=== PATIENT | male | born 1960 | race Caucasian/White ===

== ENCOUNTER 2017-07-18 12:13 | Emergency (ER) | payer OTHER ==
[2017-07-18 13:23] LABS: ADD MAN DIFF? NO
[2017-07-18 13:29] LABS: WHITE BLOOD COUNT 7.1 10^3/ul (4.8-10.8)
[2017-07-18 13:29] LABS: BASOPHILS % 0.6 % (0.0-2.0); EOSINOPHILS # 0.2 10^3/ul (0.0-0.5); EOSINOPHILS % 3.3 % (0.0-7.0); HEMATOCRIT 40.3 % (42.0-52.0); HEMOGLOBIN 13.3 g/dl (14.0-18.0); LYMPHOCYTES # 1.3 10^3/ul (0.8-2.9); MEAN CORPUSCULAR VOLUME 87.8 fl (82.0-101.0); MEAN PLATELET VOLUME 11.2 fl (7.4-10.4); MONOCYTE # 0.5 10^3/ul (0.3-0.9); MONOCYTES % 7.6 % (0.0-11.0); NEUTROPHIL # 4.9 10^3/ul (1.6-7.5); NEUTROPHILS % 69.2 % (39.0-77.0); PLATELET COUNT 113 10^3/UL (140-415); RED BLOOD COUNT 4.59 10^6/ul (4.70-6.10); RED CELL DISTRIBUTION WIDTH 13.4 % (11.5-14.5)
[2017-07-18 13:30] LABS: ADD UMIC YES; UR ASCORBIC ACID NEGATIVE (NEGATIVE); UR BILIRUBIN (Dip) NEGATIVE (NEGATIVE); UR BLOOD (Dip) 2+ mg/dL (NEGATIVE); UR CLARITY CLEAR (CLEAR); UR COLOR YELLOW (YELLOW); UR GLUCOSE (Dip) 3+ mg/dL (NEGATIVE); UR KETONES (Dip) NEGATIVE (NEGATIVE); UR LEUKOCYTE ESTERASE (Dip) NEGATIVE Leu/ul (NEGATIVE); UR NITRITE (Dip) NEGATIVE (NEGATIVE); UR RBC 5 /HPF (0-5); UR SPECIFIC GRAVITY (Dip) 1.013 (1.003-1.030); UR TOTAL PROTEIN (Dip) NEGATIVE (NEGATIVE); UR UROBILINOGEN (Dip) 2+ mg/dL (NEGATIVE); UR WBC 1 /HPF (0-5)
[2017-07-18] MEDS: SOD CHLORIDE 0.9% 1,000 ML IV (13:31)
[2017-07-18 13:45] LABS: ALANINE AMINOTRANSFERASE 37 IU/L (13-69); ALBUMIN 4.3 g/dl (3.3-4.9); ALBUMIN/GLOBULIN RATIO 1.19; ALKALINE PHOSPHATASE 119 IU/L (42-121); ANION GAP 17 (8-16); ASPARTATE AMINO TRANSFERASE 31 IU/L (15-46); BILIRUBIN,INDIRECT 0.5 mg/dl (0-1.1); BILIRUBIN,TOTAL 0.5 mg/dl (0.2-1.3); BLOOD UREA NITROGEN 23 mg/dl (7-20); CALCIUM 8.8 mg/dl (8.4-10.2); CARBON DIOXIDE 30 mmol/L (21-31); CHLORIDE 99 mmol/L (97-110); CREATININE 1.29 mg/dl (0.61-1.24); GLUCOSE 263 mg/dl (70-220); POTASSIUM 4.6 mmol/L (3.5-5.1); SODIUM 141 mmol/L (135-144); TOTAL PROTEIN 7.9 g/dl (6.1-8.1)
[2017-07-18] MEDS: ONDANSETRON 4 MG INJ IV (13:48)
[2017-07-18] MEDS: HYDROmorphONE 1 MG/5 ML IV SYRINGE IV (13:48)
== END 2017-07-18 14:31 | disposition home or self-care (01) ==
LOC: E/R 12:13
DX: R10.9 Unspecified abdominal pain (principal); R31.29 Other microscopic hematuria; I10 Essential (primary) hypertension; E11.9 Type 2 diabetes mellitus without complications; F17.210 Nicotine dependence, cigarettes, uncomplicated; Z79.4 Long term (current) use of insulin; Z79.82 Long term (current) use of aspirin
CPT/HCPCS: 36415; 74176; 80053; 81001; 85025; 87086; 96374; 96375; 99285-25

== ENCOUNTER 2018-08-05 00:22 | Inpatient (IN) | payer OTHER ==
[2018-08-05] MEDS ORDERED: hydrOXYzine PAMOATE 25 MG CAP PO (05:30)
[2018-08-05] MEDS ORDERED: VANCOMYCIN IV PER PHARMACY XX (05:30)
[2018-08-05] MEDS ORDERED: GLUCAGON 1 MG INJ IM (06:00)
[2018-08-05] MEDS ORDERED: GLUCOSE GEL 15 GRAM TUBE BUCCAL (06:00)
[2018-08-05] MEDS ORDERED: DEXTROSE 50% 50 ML SYRINGE IV ×2 (06:00)
[2018-08-05] MEDS ORDERED: GLUCOSE GEL 15 GRAM TUBE PO ×2 (06:00)
[2018-08-05] MEDS: AZTREONAM 1 GM/NS (PMX) 50 ML IVPB ×3 (06:45→21:23)
[2018-08-05] MEDS: GABAPENTIN 300 MG CAP PO ×2 (08:30→21:13)
[2018-08-05] MEDS: LOSARTAN 25 MG TAB PO (08:30)
[2018-08-05] MEDS: FINASTERIDE 5 MG TAB PO (08:30)
[2018-08-05] MEDS: ACYCLOVIR 400 MG TAB PO ×2 (08:30→21:14)
[2018-08-05] MEDS: METOPROLOL (XL) 50 MG TAB PO (08:30)
[2018-08-05] MEDS: CLOPIDOGREL 75 MG TAB PO (08:31)
[2018-08-05] MEDS: INSULIN ASPART [NOVOLOG] 3 ML PEN SC ×4 (08:32→21:19)
[2018-08-05] MEDS: ASPIRIN (EC) 325 MG TAB PO (09:00)
[2018-08-05 09:06] LABS: ADD MAN DIFF? NO
[2018-08-05 09:12] LABS: WHITE BLOOD COUNT 7.9 10^3/ul (4.8-10.8)
[2018-08-05 09:12] LABS: BASOPHILS % 0.5 % (0.0-2.0); EOSINOPHILS # 0.3 10^3/ul (0.0-0.5); EOSINOPHILS % 3.5 % (0.0-7.0); HEMATOCRIT 36.9 % (42.0-52.0); HEMOGLOBIN 11.9 g/dl (14.0-18.0); MEAN CORPUSCULAR HEMOGLOBIN 30.4 pg (29.0-33.0); MEAN CORPUSCULAR HGB CONC 32.2 g/dl (32.0-37.0); MEAN CORPUSCULAR VOLUME 94.1 fl (82.0-101.0); MEAN PLATELET VOLUME 12.3 fl (7.4-10.4); MONOCYTE # 0.8 10^3/ul (0.3-0.9); MONOCYTES % 9.6 % (0.0-11.0); NEUTROPHIL # 5.8 10^3/ul (1.6-7.5); NEUTROPHILS % 74.1 % (39.0-77.0); PLATELET COUNT 100 10^3/UL (140-415); RED BLOOD COUNT 3.92 10^6/ul (4.70-6.10); RED CELL DISTRIBUTION WIDTH 13.9 % (11.5-14.5)
[2018-08-05 09:34] LABS: ALANINE AMINOTRANSFERASE 33 IU/L (13-69); ALBUMIN 3.4 g/dl (3.3-4.9); ALBUMIN/GLOBULIN RATIO 0.97; ALKALINE PHOSPHATASE 139 IU/L (42-121); ANION GAP 8 (5-13); ASPARTATE AMINO TRANSFERASE 26 IU/L (15-46); BILIRUBIN,INDIRECT 0.5 mg/dl (0-1.1); BILIRUBIN,TOTAL 0.5 mg/dl (0.2-1.3); BLOOD UREA NITROGEN 33 mg/dl (7-20); CARBON DIOXIDE 23 mmol/L (21-31); CHLORIDE 108 mmol/L (97-110); CREATININE 1.43 mg/dl (0.61-1.24); Estimated GFR 51 mL/min (>60); GLUCOSE 189 mg/dl (70-220); POTASSIUM 4.6 mmol/L (3.5-5.1); SODIUM 139 mmol/L (135-144); TOTAL PROTEIN 6.9 g/dl (6.1-8.1)
[2018-08-05] MEDS ORDERED: VANCOMYCIN HCL 1.5 GM in SOD CHLORIDE 0.9% 250 ML IVPB (10:00)
[2018-08-05] MEDS: VANCOMYCIN HCL 1.25 GM in SOD CHLORIDE 0.9% 250 ML IVPB ×2 (10:03→21:56)
[2018-08-05 11:29] LABS: ANION GAP 5 (5-13); BLOOD UREA NITROGEN 31 mg/dl (7-20); CALCIUM 8.1 mg/dl (8.4-10.2); CARBON DIOXIDE 27 mmol/L (21-31); CHLORIDE 107 mmol/L (97-110); CREATININE 1.43 mg/dl (0.61-1.24); Estimated GFR 51 mL/min (>60); GLUCOSE 186 mg/dl (70-220); POTASSIUM 5.1 mmol/L (3.5-5.1); SODIUM 139 mmol/L (135-144)
[2018-08-05 11:30] LABS: PARTIAL THROMBOPLASTIN TIME 35.1 Sec (23.0-35.0)
[2018-08-05] MEDS: SOD CHLORIDE 0.9% 1,000 ML IV (12:12)
[2018-08-05] MEDS: ENOXAPARIN 40 MG/0.4 ML SYG SC (17:37)
[2018-08-05] MEDS: AMITRIPTYLINE 50 MG TAB PO (21:00)
[2018-08-05] MEDS: MONTELUKAST 10 MG TAB PO (21:13)
[2018-08-06] MEDS: morphine 4 MG/ML VIAL IV ×2 (00:57→21:42)
[2018-08-06] MEDS: ACCU-CHEK XX (02:00)
[2018-08-06 05:33] LABS: ADD MAN DIFF? NO
[2018-08-06 05:39] LABS: WHITE BLOOD COUNT 7.7 10^3/ul (4.8-10.8)
[2018-08-06 05:39] LABS: BASOPHILS % 0.5 % (0.0-2.0); EOSINOPHILS # 0.3 10^3/ul (0.0-0.5); EOSINOPHILS % 3.3 % (0.0-7.0); HEMATOCRIT 36.2 % (42.0-52.0); HEMOGLOBIN 11.6 g/dl (14.0-18.0); LYMPHOCYTES % 12.8 % (15.0-51.0); MEAN CORPUSCULAR HEMOGLOBIN 30.4 pg (29.0-33.0); MEAN PLATELET VOLUME 11.6 fl (7.4-10.4); MONOCYTE # 0.8 10^3/ul (0.3-0.9); MONOCYTES % 10.8 % (0.0-11.0); NEUTROPHIL # 5.5 10^3/ul (1.6-7.5); NEUTROPHILS % 72.2 % (39.0-77.0); PLATELET COUNT 106 10^3/UL (140-415); RED BLOOD COUNT 3.81 10^6/ul (4.70-6.10); RED CELL DISTRIBUTION WIDTH 13.9 % (11.5-14.5)
[2018-08-06] MEDS: AZTREONAM 1 GM/NS (PMX) 50 ML IVPB ×3 (05:40→21:40)
[2018-08-06] MEDS: PANTOPRAZOLE (EC) 40 MG TAB PO (05:40)
[2018-08-06 05:48] LABS: HEMOGLOBIN A1C 8.6 % (0-5.9)
[2018-08-06 06:10] LABS: ANION GAP 7 (5-13); BLOOD UREA NITROGEN 23 mg/dl (7-20); CARBON DIOXIDE 23 mmol/L (21-31); CHLORIDE 110 mmol/L (97-110); CREATININE 1.19 mg/dl (0.61-1.24); Estimated GFR > 60 mL/min (>60); GLUCOSE 136 mg/dl (70-220); POTASSIUM 4.9 mmol/L (3.5-5.1); SODIUM 140 mmol/L (135-144)
[2018-08-06] MEDS: INSULIN ASPART [NOVOLOG] 3 ML PEN SC ×4 (08:00→21:50)
[2018-08-06] MEDS: ACYCLOVIR 400 MG TAB PO ×2 (08:06→21:40)
[2018-08-06] MEDS: FINASTERIDE 5 MG TAB PO (08:06)
[2018-08-06] MEDS: CLOPIDOGREL 75 MG TAB PO (08:06)
[2018-08-06] MEDS: METOPROLOL (XL) 50 MG TAB PO (08:07)
[2018-08-06] MEDS: ASPIRIN (EC) 325 MG TAB PO (08:07)
[2018-08-06] MEDS: GABAPENTIN 300 MG CAP PO ×2 (08:07→21:39)
[2018-08-06] MEDS: ENOXAPARIN 40 MG/0.4 ML SYG SC (08:09)
[2018-08-06] MEDS: LOSARTAN 25 MG TAB PO (08:13)
[2018-08-06 10:13] LABS: VANCOMYCIN,TROUGH 19.4 ug/ml (10.0-20.0)
[2018-08-06] MEDS: VANCOMYCIN HCL 1.25 GM in SOD CHLORIDE 0.9% 250 ML IVPB (10:43)
[2018-08-06] MEDS: SOD CHLORIDE 0.9% 1,000 ML IV (10:44)
[2018-08-06] MEDS: ACETAMINOPHEN 325 MG TAB PO (11:27)
[2018-08-06] MEDS: AMITRIPTYLINE 50 MG TAB PO (21:00)
[2018-08-06] MEDS: MONTELUKAST 10 MG TAB PO (21:39)
[2018-08-06] MEDS ORDERED: VANCOMYCIN 750 MG (PMX) 250 ML IVPB (22:00)
[2018-08-06] MEDS: VANCOMYCIN 750 MG (PMX) 250 ML IVPB (22:44)
[2018-08-07] MEDS: ACCU-CHEK XX (02:00)
[2018-08-07] MEDS: AZTREONAM 1 GM/NS (PMX) 50 ML IVPB ×3 (05:15→22:39)
[2018-08-07] MEDS: PANTOPRAZOLE (EC) 40 MG TAB PO (05:16)
[2018-08-07 05:45] LABS: ADD MAN DIFF? NO
[2018-08-07 05:50] LABS: WHITE BLOOD COUNT 7.2 10^3/ul (4.8-10.8)
[2018-08-07 05:50] LABS: BASOPHIL # 0.1 10^3/ul (0.0-0.1); BASOPHILS % 0.7 % (0.0-2.0); EOSINOPHILS # 0.2 10^3/ul (0.0-0.5); EOSINOPHILS % 2.6 % (0.0-7.0); HEMATOCRIT 36.1 % (42.0-52.0); HEMOGLOBIN 11.5 g/dl (14.0-18.0); LYMPHOCYTES # 0.9 10^3/ul (0.8-2.9); LYMPHOCYTES % 12.6 % (15.0-51.0); MEAN CORPUSCULAR HEMOGLOBIN 30.4 pg (29.0-33.0); MEAN CORPUSCULAR HGB CONC 31.9 g/dl (32.0-37.0); MEAN CORPUSCULAR VOLUME 95.5 fl (82.0-101.0); MEAN PLATELET VOLUME 11.2 fl (7.4-10.4); MONOCYTE # 0.8 10^3/ul (0.3-0.9); MONOCYTES % 11.1 % (0.0-11.0); NEUTROPHIL # 5.2 10^3/ul (1.6-7.5); NEUTROPHILS % 72.4 % (39.0-77.0); PLATELET COUNT 114 10^3/UL (140-415); RED BLOOD COUNT 3.78 10^6/ul (4.70-6.10); RED CELL DISTRIBUTION WIDTH 13.8 % (11.5-14.5)
[2018-08-07 05:57] LABS: IRON 35 ug/dl (35-150)
[2018-08-07 06:07] LABS: % IRON SATURATION 14 % SAT (22-52); TOTAL IRON BINDING CAPACITY 242 ug/dl (241-421)
[2018-08-07 06:15] LABS: ANION GAP 5 (5-13); BLOOD UREA NITROGEN 21 mg/dl (7-20); CALCIUM 8.3 mg/dl (8.4-10.2); CARBON DIOXIDE 26 mmol/L (21-31); CHLORIDE 108 mmol/L (97-110); Estimated GFR > 60 mL/min (>60); GLUCOSE 136 mg/dl (70-220); POTASSIUM 4.7 mmol/L (3.5-5.1); SODIUM 139 mmol/L (135-144)
[2018-08-07] MEDS: ACETAMINOPHEN 325 MG TAB PO ×2 (07:39→19:41)
[2018-08-07] MEDS: INSULIN ASPART [NOVOLOG] 3 ML PEN SC ×4 (08:00→20:44)
[2018-08-07] MEDS: FINASTERIDE 5 MG TAB PO (08:30)
[2018-08-07] MEDS: GABAPENTIN 300 MG CAP PO ×2 (08:31→20:40)
[2018-08-07] MEDS: ACYCLOVIR 400 MG TAB PO ×2 (08:31→20:41)
[2018-08-07] MEDS: ASPIRIN (EC) 325 MG TAB PO (08:31)
[2018-08-07] MEDS: METOPROLOL (XL) 50 MG TAB PO (08:31)
[2018-08-07] MEDS: CLOPIDOGREL 75 MG TAB PO (08:31)
[2018-08-07] MEDS: LOSARTAN 50 MG TAB PO (08:32)
[2018-08-07] MEDS: ENOXAPARIN 40 MG/0.4 ML SYG SC (08:33)
[2018-08-07] MEDS: SOD CHLORIDE 0.9% 1,000 ML IV ×2 (11:30→19:35)
[2018-08-07] MEDS: VANCOMYCIN 750 MG (PMX) 250 ML IVPB ×2 (11:30→23:32)
[2018-08-07] MEDS: MONTELUKAST 10 MG TAB PO (20:40)
[2018-08-07] MEDS: AMITRIPTYLINE 50 MG TAB PO (20:42)
[2018-08-07] MEDS: morphine 4 MG/ML VIAL IV (21:31)
[2018-08-08] MEDS: morphine 4 MG/ML VIAL IV ×4 (01:26→21:01)
[2018-08-08] MEDS: ACCU-CHEK XX (01:27)
[2018-08-08] MEDS: PANTOPRAZOLE (EC) 40 MG TAB PO (05:29)
[2018-08-08] MEDS: AZTREONAM 1 GM/NS (PMX) 50 ML IVPB ×3 (05:29→22:07)
[2018-08-08 06:34] LABS: CREATININE 1.19 mg/dl (0.61-1.24)
[2018-08-08 06:34] LABS: BLOOD UREA NITROGEN 18 mg/dl (7-20)
[2018-08-08] MEDS: INSULIN ASPART [NOVOLOG] 3 ML PEN SC ×4 (08:00→20:51)
[2018-08-08] MEDS: CLOPIDOGREL 75 MG TAB PO (08:13)
[2018-08-08] MEDS: FINASTERIDE 5 MG TAB PO (08:13)
[2018-08-08] MEDS: METOPROLOL (XL) 50 MG TAB PO (08:14)
[2018-08-08] MEDS: LOSARTAN 50 MG TAB PO (08:15)
[2018-08-08] MEDS: ACYCLOVIR 400 MG TAB PO ×2 (08:16→20:46)
[2018-08-08] MEDS: GABAPENTIN 300 MG CAP PO ×2 (08:16→20:46)
[2018-08-08] MEDS: ASPIRIN (EC) 325 MG TAB PO (08:16)
[2018-08-08] MEDS: ENOXAPARIN 40 MG/0.4 ML SYG SC (08:19)
[2018-08-08] MEDS: VANCOMYCIN 750 MG (PMX) 250 ML IVPB ×2 (11:56→23:23)
[2018-08-08 12:00] LABS: ERYTHROCYTE SEDIMENTATION RATE 78 mm/Hr (0-20)
[2018-08-08 12:09] LABS: VANCOMYCIN,TROUGH 12.6 ug/ml (10.0-20.0)
[2018-08-08 12:10] LABS: C-REACTIVE PROTEIN 7.6 mg/dl (0.0-0.9)
[2018-08-08 12:40] LABS: PROCALCITONIN 0.17 ng/mL (0.00-0.10)
[2018-08-08] MEDS ORDERED: LORAZEPAM 2 MG INJ IV (14:00)
[2018-08-08] MEDS: AMLODIPINE 5 MG TAB PO ×2 (14:58→22:08)
[2018-08-08 15:02] LABS: INR 1.06; PROTIME 13.9 Sec (11.9-14.9); PT RATIO 1.1
[2018-08-08] MEDS: hydrALAzine 20 MG INJ IV (17:40)
[2018-08-08] MEDS: MONTELUKAST 10 MG TAB PO (20:46)
[2018-08-08] MEDS: AMITRIPTYLINE 50 MG TAB PO (20:46)
[2018-08-08] MEDS: DEXTROSE 5%-0.45% NACL 1,000 ML IV (23:23)
[2018-08-09] MEDS: ACCU-CHEK XX (02:07)
[2018-08-09] MEDS: morphine 4 MG/ML VIAL IV ×3 (02:11→20:43)
[2018-08-09] MEDS: PANTOPRAZOLE (EC) 40 MG TAB PO (06:00)
[2018-08-09] MEDS: AZTREONAM 1 GM/NS (PMX) 50 ML IVPB ×3 (06:19→22:30)
[2018-08-09] MEDS: LOSARTAN 50 MG TAB PO (09:00)
[2018-08-09] MEDS: FINASTERIDE 5 MG TAB PO (09:00)
[2018-08-09] MEDS: INSULIN ASPART [NOVOLOG] 3 ML PEN SC (09:00)
[2018-08-09] MEDS: GABAPENTIN 300 MG CAP PO ×2 (09:00→20:44)
[2018-08-09] MEDS: ENOXAPARIN 40 MG/0.4 ML SYG SC (09:00)
[2018-08-09] MEDS: ACYCLOVIR 400 MG TAB PO ×2 (09:00→20:44)
[2018-08-09] MEDS: ASPIRIN (EC) 325 MG TAB PO (09:00)
[2018-08-09] MEDS: CLOPIDOGREL 75 MG TAB PO (09:00)
[2018-08-09] MEDS: AMLODIPINE 5 MG TAB PO ×2 (09:00→20:44)
[2018-08-09] MEDS: hydrALAzine 20 MG INJ IV ×2 (09:23→20:45)
[2018-08-09] MEDS: METOPROLOL (XL) 50 MG TAB PO (09:29)
[2018-08-09] MEDS ORDERED: POLYMYXIN/BACITRACIN 1L IRRIG (10:22)
[2018-08-09] MEDS ORDERED: LABETALOL HCL 20MG INJ (10:44)
[2018-08-09] MEDS ORDERED: FENTAnyl 50 MCG/ML VIAL (10:45)
[2018-08-09] MEDS ORDERED: ONDANSETRON 4 MG INJ (10:45)
[2018-08-09] MEDS ORDERED: MIDAZOLAM 1 MG/ML 2 ML INJ (10:50)
[2018-08-09] MEDS: BUPIVACAINE 0.5% (SDV) 30 ML INJ (11:07)
[2018-08-09] MEDS: LIDOCAINE 1% (MPF) 30 ML INJ (11:11)
[2018-08-09] MEDS: Insulin NOVOLOG SS MODERATE Algorithm (SS with meals and bedtime) SC ×3 (12:48→20:43)
[2018-08-09] MEDS: VANCOMYCIN 750 MG (PMX) 250 ML IVPB ×2 (13:11→23:03)
[2018-08-09] MEDS ORDERED: INSULIN ASPART [NOVOLOG] 3 ML PEN SC (17:30)
[2018-08-09] MEDS: ACETAMINOPHEN 325 MG TAB PO (19:13)
[2018-08-09] MEDS: AMITRIPTYLINE 50 MG TAB PO (20:43)
[2018-08-09] MEDS: MONTELUKAST 10 MG TAB PO (20:44)
[2018-08-10] MEDS: morphine 4 MG/ML VIAL IV ×4 (01:32→19:35)
[2018-08-10] MEDS: ACCU-CHEK XX (01:33)
[2018-08-10] MEDS: AZTREONAM 1 GM/NS (PMX) 50 ML IVPB ×3 (05:38→22:17)
[2018-08-10] MEDS: PANTOPRAZOLE (EC) 40 MG TAB PO (05:38)
[2018-08-10] MEDS: Insulin NOVOLOG SS MODERATE Algorithm (SS with meals and bedtime) SC ×4 (08:00→21:04)
[2018-08-10] MEDS: GABAPENTIN 300 MG CAP PO ×2 (08:23→21:01)
[2018-08-10] MEDS: CLOPIDOGREL 75 MG TAB PO (08:23)
[2018-08-10] MEDS: FINASTERIDE 5 MG TAB PO (08:24)
[2018-08-10] MEDS: ACYCLOVIR 400 MG TAB PO ×2 (08:25→21:01)
[2018-08-10] MEDS: AMLODIPINE 5 MG TAB PO ×2 (08:25→21:02)
[2018-08-10] MEDS: LOSARTAN 50 MG TAB PO (08:26)
[2018-08-10] MEDS: METOPROLOL (XL) 50 MG TAB PO (08:26)
[2018-08-10] MEDS: ENOXAPARIN 40 MG/0.4 ML SYG SC (08:31)
[2018-08-10] MEDS: ASPIRIN (EC) 325 MG TAB PO (08:36)
[2018-08-10] MEDS: VANCOMYCIN 750 MG (PMX) 250 ML IVPB ×2 (10:39→22:56)
[2018-08-10 10:51] LABS: C-REACTIVE PROTEIN 7.3 mg/dl (0.0-0.9)
[2018-08-10 11:28] LABS: ERYTHROCYTE SEDIMENTATION RATE 80 mm/Hr (0-20)
[2018-08-10 12:13] LABS: PROCALCITONIN 0.15 ng/mL (0.00-0.10)
[2018-08-10] MEDS: ARTIFICIAL TEARS 15 ML OPH BOTH EYES ×3 (15:05→21:01)
[2018-08-10] MEDS: AMITRIPTYLINE 50 MG TAB PO (21:00)
[2018-08-10] MEDS: MONTELUKAST 10 MG TAB PO (21:01)
[2018-08-11] MEDS: ACCU-CHEK XX (01:41)
[2018-08-11] MEDS: hydrALAzine 20 MG INJ IV (01:42)
[2018-08-11] MEDS: ACETAMINOPHEN 325 MG TAB PO ×2 (04:12→11:24)
[2018-08-11] MEDS: ONDANSETRON 4 MG INJ IV (04:17)
[2018-08-11 05:05] LABS: ADD MAN DIFF? NO
[2018-08-11 05:10] LABS: BASOPHIL # 0.1 10^3/ul (0.0-0.1); BASOPHILS % 0.8 % (0.0-2.0); EOSINOPHILS # 0.2 10^3/ul (0.0-0.5); EOSINOPHILS % 2.1 % (0.0-7.0); HEMATOCRIT 36.7 % (42.0-52.0); HEMOGLOBIN 11.8 g/dl (14.0-18.0); LYMPHOCYTES # 0.9 10^3/ul (0.8-2.9); LYMPHOCYTES % 12.3 % (15.0-51.0); MEAN CORPUSCULAR HEMOGLOBIN 30.5 pg (29.0-33.0); MEAN CORPUSCULAR HGB CONC 32.2 g/dl (32.0-37.0); MEAN CORPUSCULAR VOLUME 94.8 fl (82.0-101.0); MEAN PLATELET VOLUME 11.1 fl (7.4-10.4); MONOCYTE # 0.7 10^3/ul (0.3-0.9); MONOCYTES % 9.7 % (0.0-11.0); NEUTROPHIL # 5.6 10^3/ul (1.6-7.5); NEUTROPHILS % 74.3 % (39.0-77.0); PLATELET COUNT 169 10^3/UL (140-415); RED BLOOD COUNT 3.87 10^6/ul (4.70-6.10); RED CELL DISTRIBUTION WIDTH 13.8 % (11.5-14.5)
[2018-08-11 05:10] LABS: WHITE BLOOD COUNT 7.6 10^3/ul (4.8-10.8)
[2018-08-11] MEDS: PANTOPRAZOLE (EC) 40 MG TAB PO (05:31)
[2018-08-11] MEDS: AZTREONAM 1 GM/NS (PMX) 50 ML IVPB (05:31)
[2018-08-11 05:48] LABS: ANION GAP 10 (5-13); BLOOD UREA NITROGEN 15 mg/dl (7-20); CALCIUM 8.6 mg/dl (8.4-10.2); CARBON DIOXIDE 23 mmol/L (21-31); CHLORIDE 107 mmol/L (97-110); CREATININE 1.15 mg/dl (0.61-1.24); Estimated GFR > 60 mL/min (>60); GLUCOSE 153 mg/dl (70-220); POTASSIUM 4.2 mmol/L (3.5-5.1); SODIUM 140 mmol/L (135-144)
[2018-08-11] MEDS: Insulin NOVOLOG SS MODERATE Algorithm (SS with meals and bedtime) SC ×2 (08:00→12:45)
[2018-08-11] MEDS: AMLODIPINE 5 MG TAB PO (08:15)
[2018-08-11] MEDS: ACYCLOVIR 400 MG TAB PO (08:16)
[2018-08-11] MEDS: FINASTERIDE 5 MG TAB PO (08:16)
[2018-08-11] MEDS: CLOPIDOGREL 75 MG TAB PO (08:16)
[2018-08-11] MEDS: LOSARTAN 50 MG TAB PO (08:16)
[2018-08-11] MEDS: GABAPENTIN 300 MG CAP PO (08:16)
[2018-08-11] MEDS: ARTIFICIAL TEARS 15 ML OPH BOTH EYES ×2 (08:17→12:43)
[2018-08-11] MEDS: METOPROLOL (XL) 50 MG TAB PO (08:17)
[2018-08-11] MEDS: ASPIRIN (EC) 325 MG TAB PO (08:18)
[2018-08-11] MEDS: VANCOMYCIN 750 MG (PMX) 250 ML IVPB (10:40)
[2018-08-11] MEDS: DAKINS 0.0125%(1/40) 473 ML SOLUTION TP (11:24)
[2018-08-11] MEDS: traMADol 50 MG TAB PO (14:54)
== END 2018-08-11 16:57 | disposition home health service (06) | DRG 581 ==
LOC: 2NE 00:22
PROC: 0J9Q0ZZ Drainage of Right Foot Subcutaneous Tissue and Fascia, Open Approach (ICD-10-PCS; principal; 2018-08-09 10:30)
DX: L03.115 Cellulitis of right lower limb (principal); E11.42 Type 2 diabetes mellitus with diabetic polyneuropathy; E11.21 Type 2 diabetes mellitus with diabetic nephropathy; S90.31XA Contusion of right foot, initial encounter; I12.9 Hypertensive chronic kidney disease with stage 1 through stage 4 chronic kidney disease, or unspecified chronic kidney disease; N18.3 Chronic kidney disease, stage 3 (moderate); E66.01 Morbid (severe) obesity due to excess calories; Z68.37 Body mass index [BMI] 37.0-37.9, adult; H40.9 Unspecified glaucoma; D64.9 Anemia, unspecified; Z79.82 Long term (current) use of aspirin; Z79.4 Long term (current) use of insulin; A60.00 Herpesviral infection of urogenital system, unspecified; W45.0XXA Nail entering through skin, initial encounter
CPT/HCPCS: 71045; 73630; 73718; 80048; 80053; 80202; 82565; 82962; 83036; 83540; 84145; 84520; 85025; 85610; 85651; 85730; 86140; 87070; 87075; 87081; 87102; 93005; 93922; 93970; 97110; 97162; 97530

== ENCOUNTER 2018-08-23 13:39 | Inpatient (IN) | payer OTHER ==
[2018-08-23 16:35] LABS: ADD MAN DIFF? NO
[2018-08-23 16:38] LABS: BASOPHIL # 0.1 10^3/ul (0.0-0.1); BASOPHILS % 1.1 % (0.0-2.0); EOSINOPHILS # 0.2 10^3/ul (0.0-0.5); EOSINOPHILS % 2.5 % (0.0-7.0); HEMATOCRIT 40.7 % (42.0-52.0); HEMOGLOBIN 13.1 g/dl (14.0-18.0); LYMPHOCYTES # 1.2 10^3/ul (0.8-2.9); LYMPHOCYTES % 16.5 % (15.0-51.0); MEAN CORPUSCULAR HEMOGLOBIN 30.1 pg (29.0-33.0); MEAN CORPUSCULAR HGB CONC 32.2 g/dl (32.0-37.0); MEAN CORPUSCULAR VOLUME 93.6 fl (82.0-101.0); MEAN PLATELET VOLUME 11.3 fl (7.4-10.4); MONOCYTE # 0.7 10^3/ul (0.3-0.9); MONOCYTES % 8.9 % (0.0-11.0); NEUTROPHIL # 5.3 10^3/ul (1.6-7.5); NEUTROPHILS % 70.6 % (39.0-77.0); PLATELET COUNT 221 10^3/UL (140-415); RED BLOOD COUNT 4.35 10^6/ul (4.70-6.10); RED CELL DISTRIBUTION WIDTH 13.1 % (11.5-14.5)
[2018-08-23 16:38] LABS: WHITE BLOOD COUNT 7.5 10^3/ul (4.8-10.8)
[2018-08-23] MEDS: SOD CHLORIDE 0.9% 500 ML IV (16:44)
[2018-08-23 16:46] LABS: ANION GAP 14 (5-13); BLOOD UREA NITROGEN 30 mg/dl (7-20); CALCIUM 9.3 mg/dl (8.4-10.2); CARBON DIOXIDE 22 mmol/L (21-31); CHLORIDE 102 mmol/L (97-110); CREATININE 2.08 mg/dl (0.61-1.24); Estimated GFR 33 mL/min (>60); GLUCOSE 206 mg/dl (70-220); POTASSIUM 4.7 mmol/L (3.5-5.1); SODIUM 138 mmol/L (135-144)
[2018-08-23 16:55] LABS: TROPONIN-I < 0.012 ng/ml (0.000-0.120)
[2018-08-23 17:14] LABS: ADD UMIC YES; UR ASCORBIC ACID NEGATIVE (NEGATIVE); UR BILIRUBIN (Dip) NEGATIVE (NEGATIVE); UR BLOOD (Dip) 1+ mg/dL (NEGATIVE); UR CLARITY SLIGHTLY CLOUDY (CLEAR); UR COLOR YELLOW (YELLOW); UR GLUCOSE (Dip) 3+ mg/dL (NEGATIVE); UR KETONES (Dip) NEGATIVE (NEGATIVE); UR LEUKOCYTE ESTERASE (Dip) NEGATIVE Leu/ul (NEGATIVE); UR MUCUS FEW /HPF (NONE SEEN); UR NITRITE (Dip) NEGATIVE (NEGATIVE); UR RBC 1 /HPF (0-5); UR SPECIFIC GRAVITY (Dip) 1.021 (1.003-1.030); UR TOTAL PROTEIN (Dip) 1+ mg/dl (NEGATIVE); UR UROBILINOGEN (Dip) NEGATIVE (NEGATIVE); UR WBC 3 /HPF (0-5)
[2018-08-23] MEDS ORDERED: ACETAMINOPHEN 325 MG TAB PO (17:30)
[2018-08-23] MEDS ORDERED: ONDANSETRON 4 MG INJ IV ×2 (17:30→18:30)
[2018-08-23] MEDS: SOD CHLORIDE 0.9% 1,000 ML IV (18:30)
[2018-08-23] MEDS ORDERED: NACL 0.9% 3 ML SYG IV (18:30)
[2018-08-23] MEDS ORDERED: DOCUSATE SODIUM 100 MG CAP PO (18:30)
[2018-08-23] MEDS ORDERED: BISACODYL (EC) 5 MG TAB PO (18:30)
[2018-08-23] MEDS ORDERED: ACETAMINOPHEN 650 MG SUPP PR (18:30)
[2018-08-23] MEDS ORDERED: MAGNESIUM HYDROXIDE 30ML CUP PO (18:30)
[2018-08-24] MEDS: ACETAMINOPHEN 325 MG TAB PO ×2 (02:24→21:18)
[2018-08-24] MEDS: PANTOPRAZOLE (EC) 40 MG TAB PO (05:40)
[2018-08-24 05:55] LABS: ALANINE AMINOTRANSFERASE 45 IU/L (13-69); ALBUMIN 3.9 g/dl (3.3-4.9); ALBUMIN/GLOBULIN RATIO 1.08; ALKALINE PHOSPHATASE 136 IU/L (42-121); ANION GAP 11 (5-13); ASPARTATE AMINO TRANSFERASE 54 IU/L (15-46); BILIRUBIN,INDIRECT 0.4 mg/dl (0-1.1); BILIRUBIN,TOTAL 0.4 mg/dl (0.2-1.3); BLOOD UREA NITROGEN 29 mg/dl (7-20); CALCIUM 8.9 mg/dl (8.4-10.2); CARBON DIOXIDE 25 mmol/L (21-31); CHLORIDE 105 mmol/L (97-110); CREATININE 1.58 mg/dl (0.61-1.24); Estimated GFR 46 mL/min (>60); GLUCOSE 144 mg/dl (70-220); SODIUM 141 mmol/L (135-144); TOTAL PROTEIN 7.5 g/dl (6.1-8.1)
[2018-08-24 05:58] LABS: HEMOGLOBIN A1C 8.6 % (0-5.9)
[2018-08-24] MEDS: ENOXAPARIN 40 MG/0.4 ML SYG SC (09:11)
[2018-08-24] MEDS: SOD CHLORIDE 0.9% 1,000 ML IV ×2 (09:16→10:46)
[2018-08-24] MEDS: INSULIN ASPART [NOVOLOG] 3 ML PEN SC ×2 (17:50→21:00)
[2018-08-24] MEDS: CLOPIDOGREL 75 MG TAB PO (18:04)
[2018-08-24] MEDS: GABAPENTIN 300 MG CAP PO (18:04)
[2018-08-24] MEDS: FINASTERIDE 5 MG TAB PO (18:04)
[2018-08-24] MEDS: AMLODIPINE 5 MG TAB PO (18:04)
[2018-08-24] MEDS: ASPIRIN (EC) 81 MG TAB PO (18:04)
[2018-08-24] MEDS: ALFUZOSIN (SR) 10 MG TAB PO (18:05)
[2018-08-24] MEDS: ACYCLOVIR 400 MG TAB PO (18:05)
[2018-08-24] MEDS: METOPROLOL (XL) 50 MG TAB PO (18:06)
[2018-08-24] MEDS: MONTELUKAST 10 MG TAB PO (21:18)
[2018-08-24] MEDS: INSULIN GLARGINE [LANTus] (100 UNITS/ML) SYG SC (21:21)
[2018-08-25] MEDS: ACCU-CHEK XX (01:50)
[2018-08-25] MEDS: PANTOPRAZOLE (EC) 40 MG TAB PO (05:43)
[2018-08-25] MEDS: SOD CHLORIDE 0.9% 1,000 ML IV (05:46)
[2018-08-25 06:11] LABS: ANION GAP 9 (5-13); BLOOD UREA NITROGEN 22 mg/dl (7-20); CALCIUM 8.9 mg/dl (8.4-10.2); CARBON DIOXIDE 25 mmol/L (21-31); CHLORIDE 107 mmol/L (97-110); CREATININE 1.26 mg/dl (0.61-1.24); Estimated GFR 59 mL/min (>60); GLUCOSE 136 mg/dl (70-220); POTASSIUM 4.1 mmol/L (3.5-5.1); SODIUM 141 mmol/L (135-144)
[2018-08-25] MEDS: INSULIN ASPART [NOVOLOG] 3 ML PEN SC (08:00)
[2018-08-25] MEDS: ASPIRIN (EC) 81 MG TAB PO (08:06)
[2018-08-25] MEDS: GABAPENTIN 300 MG CAP PO (08:06)
[2018-08-25] MEDS: ALFUZOSIN (SR) 10 MG TAB PO (08:07)
[2018-08-25] MEDS: ACYCLOVIR 400 MG TAB PO (08:07)
[2018-08-25] MEDS: CLOPIDOGREL 75 MG TAB PO (08:07)
[2018-08-25] MEDS: AMLODIPINE 5 MG TAB PO (08:07)
[2018-08-25] MEDS: FINASTERIDE 5 MG TAB PO (08:07)
[2018-08-25] MEDS: METOPROLOL (XL) 50 MG TAB PO (08:09)
[2018-08-25] MEDS: ENOXAPARIN 40 MG/0.4 ML SYG SC (08:12)
== END 2018-08-25 11:55 | disposition home or self-care (01) | DRG 312 ==
LOC: E/R 13:39 → 2NE 17:31
DX: I95.2 Hypotension due to drugs (principal); N17.9 Acute kidney failure, unspecified; Z72.0 Tobacco use; T46.5X5A Adverse effect of other antihypertensive drugs, initial encounter; E11.21 Type 2 diabetes mellitus with diabetic nephropathy; E11.40 Type 2 diabetes mellitus with diabetic neuropathy, unspecified; N40.0 Benign prostatic hyperplasia without lower urinary tract symptoms; E11.22 Type 2 diabetes mellitus with diabetic chronic kidney disease; I12.9 Hypertensive chronic kidney disease with stage 1 through stage 4 chronic kidney disease, or unspecified chronic kidney disease; N18.9 Chronic kidney disease, unspecified; F32.9 Major depressive disorder, single episode, unspecified; D64.9 Anemia, unspecified
CPT/HCPCS: 36415; 71045; 80048; 80053; 81001; 82962; 83036; 84484; 85025; 93005; 99285-25